=== PATIENT | female | born 1940 | race Caucasian/White ===

== ENCOUNTER 2017-08-06 17:53 | Emergency (ER) | payer MEDICARE ==
[~2017-08-06] VITALS: Ht 170.2 cm; Wt 76.7 kg
[2017-08-06] MEDS ORDERED: ALBUTEROL SULF 0.083% NEB SOLN 3 ML NEB NEB ONE (19:00)
[2017-08-06] MEDS ORDERED: CEFTRIAXONE SOD 1 GM VIAL IV ONE (19:00)
[2017-08-06] MEDS ORDERED: BROMFED DM COU118 ML PO (19:13)
[2017-08-06] MEDS ORDERED: AZITHROMYCIN250 MG PO (19:13)
[2017-08-06 20:44] VITALS: BP 155/72
== END 2017-08-06 20:00 | disposition home or self-care (01) ==
LOC: FSED 17:53
DX: R05 Cough (principal); J15.9 Unspecified bacterial pneumonia
CPT/HCPCS: 71046; 80053; 85025; 87400; 96365; 99283; J0696

== ENCOUNTER 2020-05-03 14:19 | Observation (INO) | payer MEDICARE, BC ==
[~2020-05-03] VITALS: Ht 170.2 cm; Wt 70.3 kg
[~2020-05-03 14:19] MED LIST: AZITHROMYCIN250 MG PO; BROMFED DM COU118 ML PO
[2020-05-03 15:33] LABS: BILIRUBIN,URINE NEGATIVE (NEGATIVE); CLARITY,URINE CLEAR (CLEAR); COLOR,URINE YELLOW (YELLOW); KETONES,URINE NEGATIVE (NEGATIVE); LEUKOCYTE ESTERASE ,URINE NEGATIVE (NEGATIVE); NITRITE,URINE NEGATIVE (NEGATIVE); PROTEIN,URINE DIPSTICK NEGATIVE (NEGATIVE); URINE UROBILINOGEN 0.2 mg/dL (0.2 - 1)
[2020-05-03 15:36] LABS: BACTERIA,URINE FEW /HPF; EPITHELIAL CELLS,URINE FEW /LPF; RBC,URINE 0-5 /HPF (0-5); WBC,URINE (MAN) 0-5 /HPF (0-5)
[2020-05-03 16:08] LABS: BASOPHILS % 0.6 % (0.0-1.0); EOSINOPHILS # (AUTO) 0.1 (0.0-0.4); EOSINOPHILS % 1.4 % (0.0-6.0); HEMATOCRIT 38.9 % (34.2-44.1); HEMOGLOBIN 13.3 g/dL (12.0-16.0); LYMPHOCYTES # (AUTO) 1.2 (1.0-3.2); LYMPHOCYTES % 17.7 % (18.0-39.1); MEAN CORPUSCULAR HEMOGLOBIN 30.2 pg (28-32); MEAN CORPUSCULAR HGB CONC 34.2 g/dL (31-35); MEAN CORPUSCULAR VOLUME 88.4 fL (81-99); MONOCYTES # (AUTO) 0.4 (0.2-0.8); MONOCYTES % 5.7 % (4.4-11.3); NEUTROPHILS # (AUTO) 5.1 (2.1-6.9); NEUTROPHILS % 74.5 % (38.7-80.0); PLATELET COUNT 278 x10e3/uL (140-360); RED CELL DISTRIBUTION WIDTH 11.9 % (11.7-14.4)
[2020-05-03 16:21] LABS: INR 0.94; PROTHROMBIN TIME 13.1 seconds (11.9-14.5)
[2020-05-03 16:22] LABS: PARTIAL THROMBOPLASTIN TIME 33.8 seconds (23.8-35.5)
[2020-05-03 16:30] LABS: ALANINE AMINOTRANSFERASE 18 IU/L (0-55); ALBUMIN 4.3 g/dL (3.5-5.0); ALBUMIN/GLOBULIN RATIO 1.3 (0.8-2.0); ALKALINE PHOSPHATASE 82 IU/L (40-150); ANION GAP 16.3 mmol/L (8-16); BLOOD UREA NITROGEN 8 mg/dL (7-26); BUN/CREATININE RATIO 11 (6-25); CALCIUM 9.7 mg/dL (8.4-10.2); CARBON DIOXIDE 28 mmol/L (22-29); CHLORIDE 91 mmol/L (98-107); CREATINE KINASE 107 IU/L (29-168); EST GLOMERULAR FILTRATION RATE > 60 ML/MIN (60-); GLUCOSE 129 mg/dL (74-118); POTASSIUM 3.3 mmol/L (3.5-5.1); SODIUM 132 mmol/L (136-145)
[2020-05-03] MEDS ORDERED: ALPRAZOLAM 0.5 MG TAB PO ONE (16:30)
[2020-05-03] MEDS ORDERED: METFORMIN HCL500 MG PO (17:00)
[2020-05-03] MEDS ORDERED: ASPIRIN325 MG PO (17:00)
[2020-05-03] MEDS ORDERED: AMLODIPINE BESYL5 MG PO (17:00)
[2020-05-03] MEDS ORDERED: SIMVASTATIN40 MG PO (17:00)
[2020-05-03] MEDS ORDERED: LISINOPRIL-HCT1 EAC1 PO (17:00)
[2020-05-03] MEDS ORDERED: B-12 COMPL1000 MCG/1 (17:00)
[2020-05-03] MEDS ORDERED: ALPRAZOLAM0.5 MG PO (17:00)
[2020-05-03] MEDS ORDERED: CARVEDILOL25 MG PO (17:00)
[2020-05-03] MEDS ORDERED: ASPIRIN 325 MG TAB PO ONE (17:00)
[2020-05-03] MEDS ORDERED: ENOXAPARIN SOD INJ 60 MG/0.6 ML SYR SC STA (18:05)
[2020-05-03] MEDS ORDERED: ENOXAPARIN SOD INJ 60 MG/0.6 ML SYR SC ONE (18:11)
[2020-05-03 18:40] VITALS: BP 139/65
[2020-05-03] MEDS ORDERED: ALPRAZOLAM 0.5 MG TAB PO PRN (19:00)
[2020-05-03 19:45] VITALS: BP 139/65
[2020-05-03] MEDS ORDERED: IOPAMIDOL 370 MG/ML 200 ML INFUS..BTL INJ ONE (19:49)
[2020-05-03] MEDS ORDERED: SODIUM CHLORIDE 0.9% 100 ML ONE (19:49)
[2020-05-03 20:00] VITALS: BP 168/78
[2020-05-03] MEDS ORDERED: ATORVASTATIN 40 MG TAB PO SCH (21:00)
[2020-05-03] MEDS ORDERED: AMLODIPINE BESYLATE 5 MG TAB PO SCH (21:00)
[2020-05-03] MEDS ORDERED: SIMVASTATIN 40 MG TAB PO SCH (21:00)
[2020-05-03] MEDS: CARVEDILOL 12.5 MG TAB PO SCH (21:01)
[2020-05-04] VITALS: BP 151/56
[2020-05-04 04:00] VITALS: BP 145/69
[2020-05-04 06:39] LABS: BASOPHILS % 0.7 % (0.0-1.0); EOSINOPHILS # (AUTO) 0.2 (0.0-0.4); EOSINOPHILS % 2.8 % (0.0-6.0); HEMATOCRIT 35.9 % (34.2-44.1); HEMOGLOBIN 12.5 g/dL (12.0-16.0); LYMPHOCYTES # (AUTO) 1.6 (1.0-3.2); MEAN CORPUSCULAR HEMOGLOBIN 30.9 pg (28-32); MEAN CORPUSCULAR HGB CONC 34.8 g/dL (31-35); MEAN CORPUSCULAR VOLUME 88.9 fL (81-99); MONOCYTES # (AUTO) 0.5 (0.2-0.8); MONOCYTES % 9.4 % (4.4-11.3); NEUTROPHILS # (AUTO) 3.4 (2.1-6.9); NEUTROPHILS % 58.8 % (38.7-80.0); PLATELET COUNT 267 x10e3/uL (140-360); RED BLOOD COUNT 4.04 x10e6/uL (3.6-5.1); RED CELL DISTRIBUTION WIDTH 11.7 % (11.7-14.4)
[2020-05-04 07:04] LABS: ANION GAP 17.5 mmol/L (8-16); BLOOD UREA NITROGEN 6 mg/dL (7-26); BUN/CREATININE RATIO 9 (6-25); CALCIUM 8.8 mg/dL (8.4-10.2); CARBON DIOXIDE 26 mmol/L (22-29); CHLORIDE 95 mmol/L (98-107); CREATININE, SERUM 0.68 mg/dL (0.57-1.11); EST GLOMERULAR FILTRATION RATE > 60 ML/MIN (60-); GLUCOSE 126 mg/dL (74-118); POTASSIUM 3.5 mmol/L (3.5-5.1); SODIUM 135 mmol/L (136-145)
[2020-05-04 07:34] VITALS: BP 160/67
[2020-05-04 07:56] VITALS: BP 160/67
[2020-05-04] MEDS ORDERED: METFORMIN HCL 500 MG TAB PO SCH (08:00)
[2020-05-04] MEDS: CARVEDILOL 12.5 MG TAB PO SCH (08:35)
[2020-05-04] MEDS ORDERED: HYDROCHLOROTHIAZIDE 25 MG TAB PO SCH (09:00)
[2020-05-04] MEDS ORDERED: ASPIRIN 325 MG TAB PO SCH ×2 (09:00)
[2020-05-04] MEDS ORDERED: LISINOPRIL 20 MG TAB PO SCH (09:00)
[2020-05-04] MEDS ORDERED: POTASSIUM CHLORIDE 10MEQ EA PO ONE (10:00)
[2020-05-04] MEDS ORDERED: ALPRAZOLAM 0.5 MG TAB PO ONE (10:00)
[2020-05-04 11:27] VITALS: BP 144/59
[2020-05-04] MEDS ORDERED: CLOPIDOGREL75 MG PO (13:23)
[2020-05-04] MEDS ORDERED: ATORVASTATIN CA20 MG PO (13:24)
[2020-05-04 14:38] LABS: CHOL/HDL RATIO 2.6 (3.0-3.6)
== END 2020-05-04 13:51 | disposition home or self-care (01) ==
LOC: ER 14:48 → ERHOLD 16:14 → MED/SURG2 18:33
PROVIDERS: ADMIT Internal Medicine; ATTEND Internal Medicine
DX: G45.9 Transient cerebral ischemic attack, unspecified (principal); I11.0 Hypertensive heart disease with heart failure; I50.32 Chronic diastolic (congestive) heart failure; E11.9 Type 2 diabetes mellitus without complications; F41.9 Anxiety disorder, unspecified; E78.5 Hyperlipidemia, unspecified; E78.00 Pure hypercholesterolemia, unspecified; Z90.49 Acquired absence of other specified parts of digestive tract; Z82.49 Family history of ischemic heart disease and other diseases of the circulatory system; Z80.52 Family history of malignant neoplasm of bladder; Z81.2 Family history of tobacco abuse and dependence; Z82.3 Family history of stroke; Z20.828 Contact with and (suspected) exposure to other viral communicable diseases; Z79.84 Long term (current) use of oral hypoglycemic drugs
CPT/HCPCS: 36415 ×2; 70450; 70496; 70498; 70551; 71045; 80048; 80053; 80061; 81001; 82550; 82553; 82607; 82948 ×2; 84443; 84484; 85025 ×2; 85597; 85598; 85610; 85613; 85730 ×2; 85732; 86039; 86146 ×3; 86147; 86148; 86849; 93005; 93306; 93880; 99284; G0378 ×2; J1650; J7050; Q9967; U0002

== ENCOUNTER 2021-03-04 10:21 | Emergency (ER) | payer MEDICARE, BC ==
[~2021-03-04] VITALS: Ht 165.1 cm; Wt 71.7 kg
[~2021-03-04 10:21] MED LIST changes: +ALPRAZOLAM0.5 MG PO; +AMLODIPINE BESYL5 MG PO; +ASPIRIN325 MG PO; +ATORVASTATIN CA20 MG PO; +B-12 COMPL1000 MCG/1; +CARVEDILOL25 MG PO; +CLOPIDOGREL75 MG PO; +LISINOPRIL-HCT1 EAC1 PO; +METFORMIN HCL500 MG PO; +SIMVASTATIN40 MG PO
[2021-03-04] MEDS ORDERED: AZITHROMYCIN 250 MG TAB PO STA (10:35)
[2021-03-04] MEDS ORDERED: DEXAMETHASONE SOD PHOS 10 MG/1 ML VIAL IM STA (10:35)
[2021-03-04] MEDS ORDERED: PREDNISONE 20 MG TAB PO STA (10:37)
[2021-03-04] MEDS ORDERED: PREDNISONE 20 MG TAB ONE (10:47)
[2021-03-04] MEDS ORDERED: AZITHROMYCIN 250 MG TAB ONE (10:51)
[2021-03-04] MEDS ORDERED: PREDNISONE20 MG PO (11:45)
[2021-03-04] MEDS ORDERED: AZITHROMYCIN250 MG PO (11:45)
[2021-03-04] MEDS ORDERED: VENTOLIN HFA18 GM INH (11:45)
== END 2021-03-04 11:50 | disposition home or self-care (01) ==
LOC: FSED 10:23
DX: R05.9 Cough, unspecified (principal); J18.9 Pneumonia, unspecified organism; I10 Essential (primary) hypertension; E11.9 Type 2 diabetes mellitus without complications; E78.5 Hyperlipidemia, unspecified
CPT/HCPCS: 71046; 83518; 87400; 99284; J1100; J7512

== ENCOUNTER → 2022-06-19 | Day surgery (SDC) | payer MEDICARE, BC ==
[2022-06-13 14:45] LABS: BASOPHILS % 0.7 % (0.0-1.0); EOSINOPHILS # (AUTO) 0.2 (0.0-0.4); EOSINOPHILS % 3.9 % (0.0-6.0); HEMATOCRIT 37.9 % (34.2-44.1); HEMOGLOBIN 12.1 g/dL (12.0-16.0); LYMPHOCYTES # (AUTO) 1.8 (1.0-3.2); LYMPHOCYTES % 31.8 % (18.0-39.1); MEAN CORPUSCULAR HEMOGLOBIN 30.9 pg (28-32); MEAN CORPUSCULAR HGB CONC 31.9 g/dL (31-35); MEAN CORPUSCULAR VOLUME 96.7 fL (81-99); MONOCYTES # (AUTO) 0.6 (0.2-0.8); MONOCYTES % 11.4 % (4.4-11.3); NEUTROPHILS # (AUTO) 2.9 (2.1-6.9); NEUTROPHILS % 51.8 % (38.7-80.0); PLATELET COUNT 242 x10e3/uL (140-360); RED BLOOD COUNT 3.92 x10e6/uL (3.6-5.1); RED CELL DISTRIBUTION WIDTH 11.7 % (11.7-14.4)
[~2022-06-19] MED LIST changes: +FENTANYL CITRATE/PF 100MCG/2 ML INJ ONE; +MIDAZOLAM HCL 2 MG/2 ML VIAL ONE; +OR PHACO EYE KIT ONE; +POTASSIUM CHLO20 ME1 PO; +PREDNISONE20 MG PO; +PREOP PHACO EYE KIT ONE; +VENTOLIN HFA18 GM INH
[2022-06-19 12:35] VITALS: BP 145/76
== END | disposition home or self-care (01) ==
LOC: OR 08:48
PROVIDERS: ATTEND Ophthalmology
DX: H25.12 Age-related nuclear cataract, left eye (principal); I10 Essential (primary) hypertension; E78.5 Hyperlipidemia, unspecified; E11.9 Type 2 diabetes mellitus without complications; F41.9 Anxiety disorder, unspecified; Z01.810 Encounter for preprocedural cardiovascular examination; Z01.812 Encounter for preprocedural laboratory examination; Z79.02 Long term (current) use of antithrombotics/antiplatelets; Z79.84 Long term (current) use of oral hypoglycemic drugs; Z79.899 Other long term (current) drug therapy; Z79.52 Long term (current) use of systemic steroids; Z86.73 Personal history of transient ischemic attack (TIA), and cerebral infarction without residual deficits
CPT/HCPCS: 36415 ×2; 66984; 82948; 85025; 93005; J2250; J3010; V2632

== ENCOUNTER → 2022-07-10 | Day surgery (SDC) | payer MEDICARE, BC ==
[2022-07-10 10:25] VITALS: BP 125/61
== END | disposition home or self-care (01) ==
LOC: OR 07:48
PROVIDERS: ATTEND Ophthalmology
DX: H25.11 Age-related nuclear cataract, right eye (principal); E11.9 Type 2 diabetes mellitus without complications; I10 Essential (primary) hypertension; F41.9 Anxiety disorder, unspecified; Z79.02 Long term (current) use of antithrombotics/antiplatelets; Z79.84 Long term (current) use of oral hypoglycemic drugs; Z79.899 Other long term (current) drug therapy; Z86.73 Personal history of transient ischemic attack (TIA), and cerebral infarction without residual deficits
CPT/HCPCS: 36415; 66984; 82948; J2250; J3010; V2632

== ENCOUNTER 2022-11-29 18:50 | Emergency (ER) | payer MEDICARE, BC ==
[~2022-11-29] VITALS: Ht 165.1 cm; Wt 71.7 kg
[~2022-11-29 18:50] MED LIST changes: -FENTANYL CITRATE/PF 100MCG/2 ML INJ ONE; -MIDAZOLAM HCL 2 MG/2 ML VIAL ONE; -OR PHACO EYE KIT ONE; -PREOP PHACO EYE KIT ONE
[2022-11-29] MEDS ORDERED: SODIUM CHLORIDE 0.9% 1000ML 1,000 ML IV STA (20:34)
[2022-11-29 20:51] LABS: BASOPHILS % 0.5 % (0.0-1.0); EOSINOPHILS # (AUTO) 0.2 (0.0-0.4); EOSINOPHILS % 2.9 % (0.0-6.0); HEMATOCRIT 36.9 % (34.2-44.1); HEMOGLOBIN 13.1 g/dL (12.0-16.0); LYMPHOCYTES # (AUTO) 1.4 (1.0-3.2); LYMPHOCYTES % 18.9 % (18.0-39.1); MEAN CORPUSCULAR HEMOGLOBIN 31.1 pg (28-32); MEAN CORPUSCULAR HGB CONC 35.5 g/dL (31-35); MEAN CORPUSCULAR VOLUME 87.6 fL (81-99); MONOCYTES # (AUTO) 0.8 (0.2-0.8); MONOCYTES % 10.7 % (4.4-11.3); NEUTROPHILS # (AUTO) 4.9 (2.1-6.9); NEUTROPHILS % 66.9 % (38.7-80.0); PLATELET COUNT 243 x10e3/uL (140-360); RED BLOOD COUNT 4.21 x10e6/uL (3.6-5.1); RED CELL DISTRIBUTION WIDTH 11.9 % (11.7-14.4)
[2022-11-29] MEDS ORDERED: ONDANSETRON HCL INJ 2MG/ML 2ML 2 MG/ML VIAL IV STA (20:52)
[2022-11-29] MEDS ORDERED: Morphine 4mg INJECTION 4 MG/ML INJ IV STA (20:52)
[2022-11-29 21:06] LABS: ALANINE AMINOTRANSFERASE 17 IU/L (0-55); ALBUMIN 4.1 g/dL (3.5-5.0); ALBUMIN/GLOBULIN RATIO 1.3 (0.8-2.0); ALKALINE PHOSPHATASE 85 IU/L (40-150); ANION GAP 16.5 mmol/L (8-16); BLOOD UREA NITROGEN 9 mg/dL (7-26); BUN/CREATININE RATIO 13 (6-25); CALCIUM 9.2 mg/dL (8.4-10.2); CARBON DIOXIDE 24 mmol/L (22-29); CHLORIDE 95 mmol/L (98-107); CREATINE KINASE 107 IU/L (29-168); CREATININE, SERUM 0.72 mg/dL (0.57-1.11); GLUCOSE 127 mg/dL (74-118); POTASSIUM 3.5 mmol/L (3.5-5.1); SODIUM 132 mmol/L (136-145)
[2022-11-29] MEDS ORDERED: IOPAMIDOL 370 MG/ML 100 ML INFUS..BTL INJ ONE (21:14)
[2022-11-29 21:23] LABS: CLARITY,URINE CLEAR (CLEAR); COLOR,URINE YELLOW (YELLOW)
[2022-11-29 21:24] LABS: KETONES,URINE NEGATIVE (NEGATIVE); LEUKOCYTE ESTERASE ,URINE TRACE (NEGATIVE); NITRITE,URINE NEGATIVE (NEGATIVE); PROTEIN,URINE DIPSTICK NEGATIVE (NEGATIVE); URINE UROBILINOGEN 0.2 mg/dL (0.2 - 1)
[2022-11-29 21:33] LABS: AMORPHOUS SEDIMENT,URINE MODERATE (FEW); BACTERIA,URINE FEW /HPF; EPITHELIAL CELLS,URINE FEW /LPF; WBC,URINE (MAN) 0-5 /HPF (0-5)
[2022-11-29] MEDS ORDERED: FAMOTIDINE 20 MG/2 ML VIAL IV STA (21:52)
[2022-11-29] MEDS ORDERED: PEPCID20 MG PO (22:19)
[2022-11-29] MEDS ORDERED: ULTRAM 50MG50 MG PO (22:57)
[2022-11-30 00:42] VITALS: BP 165/85; PULSE 78; RESP 16; TEMP 98.3; O2SAT 99
== END 2022-11-29 23:04 | disposition home or self-care (01) ==
LOC: ER 18:56
DX: R10.13 Epigastric pain (principal); R59.1 Generalized enlarged lymph nodes; I10 Essential (primary) hypertension; E11.65 Type 2 diabetes mellitus with hyperglycemia; E78.5 Hyperlipidemia, unspecified
CPT/HCPCS: 36415; 74177; 80053; 81001; 82550; 83690; 84484; 85025; 99284; J2270; J2405; J7030; Q9967

== ENCOUNTER → 2024-03-18 | Day surgery (SDC) | payer MEDICARE, BC ==
[2024-03-12 10:30] LABS: BASOPHILS # (AUTO) 0.1 (0.0-0.1); BASOPHILS % 0.9 % (0.0-1.0); EOSINOPHILS # (AUTO) 0.3 (0.0-0.4); EOSINOPHILS % 4.7 % (0.0-6.0); HEMATOCRIT 42.2 % (34.2-44.1); LYMPHOCYTES # (AUTO) 1.6 (1.0-3.2); LYMPHOCYTES % 29.3 % (18.0-39.1); MEAN CORPUSCULAR HEMOGLOBIN 31.5 pg (28-32); MEAN CORPUSCULAR HGB CONC 33.2 g/dL (31-35); MONOCYTES # (AUTO) 0.7 (0.2-0.8); MONOCYTES % 12.3 % (4.4-11.3); NEUTROPHILS # (AUTO) 2.8 (2.1-6.9); NEUTROPHILS % 52.4 % (38.7-80.0); PLATELET COUNT 249 x10e3/uL (140-360); RED BLOOD COUNT 4.44 x10e6/uL (3.6-5.1); RED CELL DISTRIBUTION WIDTH 11.9 % (11.7-14.4); WHITE BLOOD COUNT 5.29 x10e3/uL (4.8-10.8)
[~2024-03-18] MED LIST changes: -B-12 COMPL1000 MCG/1; +B-12 COMPL1000 MCG/1 INJ; +IOPAMIDOL 200 MG/ML 20 ML VIAL IT ONE; +LIDOCAINE HCL 1% 30ML-PF VIAL ONE; +LIDOCAINE HCL 2% LOCAL INJ 5 ML SDV VIAL INJ ONE; +MAGNESIUM PO; +PEPCID20 MG PO; +PROPOFOL IV EMULSION 10 MG/ML 20 ML VIAL ONE; +TRIAMCINOLONE ACET 40 MG/ML VIAL ONE; +ULTRAM 50MG50 MG PO; +VITAMIN C500 MG PO; +VITAMIN D350 MC1 PEG; +WARFARIN SODIUM2 MG PO
[2024-03-18] MEDS: LACTATED RINGER'S 1,000 ML ONE (08:23)
[2024-03-18 08:58] LABS: INR 0.92; PROTHROMBIN TIME 12.8 seconds (11.9-14.5)
[2024-03-18 09:55] VITALS: BP 140/70; PULSE 61; RESP 16; O2SAT 98
== END | disposition home or self-care (01) ==
LOC: OR 07:50
PROVIDERS: ATTEND Physical Medicine & Rehabilitation Pain Medicine
DX: M47.896 Other spondylosis, lumbar region (principal); R93.7 Abnormal findings on diagnostic imaging of other parts of musculoskeletal system; E11.9 Type 2 diabetes mellitus without complications; K28.9 Gastrojejunal ulcer, unspecified as acute or chronic, without hemorrhage or perforation; I10 Essential (primary) hypertension; I48.91 Unspecified atrial fibrillation; E78.00 Pure hypercholesterolemia, unspecified; E66.3 Overweight; F41.9 Anxiety disorder, unspecified; Z01.812 Encounter for preprocedural laboratory examination; Z91.048 Other nonmedicinal substance allergy status; Z79.84 Long term (current) use of oral hypoglycemic drugs; Z79.01 Long term (current) use of anticoagulants; Z79.899 Other long term (current) drug therapy; Z86.73 Personal history of transient ischemic attack (TIA), and cerebral infarction without residual deficits
CPT/HCPCS: 36415 ×2; 64493; 64494; 64495; 85025; 85610; 85730; J2003 ×2; J2704; J3301; J7121; Q9967; 77002

== ENCOUNTER → 2024-06-17 | Day surgery (SDC) | payer MEDICARE, BC ==
[2024-06-08 13:43] LABS: BASOPHILS # (AUTO) 0.1 (0.0-0.1); BASOPHILS % 0.7 % (0.0-1.0); EOSINOPHILS # (AUTO) 0.3 (0.0-0.4); EOSINOPHILS % 3.5 % (0.0-6.0); HEMATOCRIT 41.8 % (34.2-44.1); HEMOGLOBIN 13.4 g/dL (12.0-16.0); LYMPHOCYTES # (AUTO) 1.4 (1.0-3.2); LYMPHOCYTES % 18.2 % (18.0-39.1); MEAN CORPUSCULAR HEMOGLOBIN 31.4 pg (28-32); MEAN CORPUSCULAR HGB CONC 32.1 g/dL (31-35); MEAN CORPUSCULAR VOLUME 97.9 fL (81-99); MONOCYTES # (AUTO) 0.7 (0.2-0.8); MONOCYTES % 9.1 % (4.4-11.3); NEUTROPHILS # (AUTO) 5.2 (2.1-6.9); NEUTROPHILS % 68.2 % (38.7-80.0); PLATELET COUNT 263 x10e3/uL (140-360); RED BLOOD COUNT 4.27 x10e6/uL (3.6-5.1); RED CELL DISTRIBUTION WIDTH 11.9 % (11.7-14.4); WHITE BLOOD COUNT 7.62 x10e3/uL (4.8-10.8)
[~2024-06-17] MED LIST changes: +HYDROCODON-ACE1 EA12 PEG; -LIDOCAINE HCL 1% 30ML-PF VIAL ONE; +ROSUVASTATIN CA20 MG PO; -TRIAMCINOLONE ACET 40 MG/ML VIAL ONE; -VITAMIN D350 MC1 PEG; +VITAMIN D350 MC1 PO
[2024-06-17] MEDS: LACTATED RINGER'S 1,000 ML ONE (08:11)
[2024-06-17 09:57] LABS: INR 0.92; PROTHROMBIN TIME 12.9 seconds (11.9-14.5)
[2024-06-17 10:19] LABS: PARTIAL THROMBOPLASTIN TIME 33.1 seconds (23.8-35.5)
[2024-06-17 10:35] VITALS: TEMP 97.2
[2024-06-17 10:55] VITALS: BP 163/69; PULSE 72; RESP 18; O2SAT 98
== END | disposition home or self-care (01) ==
LOC: OR 07:57
PROVIDERS: ATTEND Physical Medicine & Rehabilitation Pain Medicine
DX: M47.896 Other spondylosis, lumbar region (principal); M70.62 Trochanteric bursitis, left hip; M70.61 Trochanteric bursitis, right hip; M54.59 Other low back pain; E11.9 Type 2 diabetes mellitus without complications; I48.91 Unspecified atrial fibrillation; I10 Essential (primary) hypertension; E78.00 Pure hypercholesterolemia, unspecified; K28.9 Gastrojejunal ulcer, unspecified as acute or chronic, without hemorrhage or perforation; Z91.048 Other nonmedicinal substance allergy status; Z01.810 Encounter for preprocedural cardiovascular examination; Z01.812 Encounter for preprocedural laboratory examination; Z79.84 Long term (current) use of oral hypoglycemic drugs; Z79.01 Long term (current) use of anticoagulants; Z79.899 Other long term (current) drug therapy
CPT/HCPCS: 36415 ×2; 64493; 64494; 64495; 85025; 85610; 85730; 93005; J2003; J2704; J7121; Q9967; 77002

== ENCOUNTER → 2025-02-12 | Outpatient (REF) | payer MEDICARE, BC ==
[~2025-02-12] MED LIST changes: -IOPAMIDOL 200 MG/ML 20 ML VIAL IT ONE; -LIDOCAINE HCL 2% LOCAL INJ 5 ML SDV VIAL INJ ONE; -PROPOFOL IV EMULSION 10 MG/ML 20 ML VIAL ONE
== END ==
LOC: RAD 14:40
PROVIDERS: ATTEND Student in an Organized Health Care Education/Training Program
DX: M25.572 Pain in left ankle and joints of left foot (principal)